=== PATIENT | male | born 1960 | race Two or more races ===

== ENCOUNTER 2018-05-08 11:05 | Emergency (ER) | payer OTHER ==
[~2018-05-08] VITALS: Ht 167.6 cm; Wt 72.5 kg
[~2018-05-08 11:05] MED LIST: AMLO1TAB2
[2018-05-08 12:06] LABS: BASOPHILS # (AUTO) 0.04 x10^3/uL (0-0.1); BASOPHILS % (AUTO) 1 % (0-1); EOSINOPHILS % (AUTO) 2 % (1-7); LYMPHOCYTES # (AUTO) 1.71 x10^3/uL (1-3.4); LYMPHOCYTES % (AUTO) 18 % (22-44); MD NO; MEAN CORPUSCULAR HEMOGLOBIN 29.8 pg (27.5-34.5); MEAN CORPUSCULAR HGB CONC 33.8 g/dL (33.2-36.2); MEAN CORPUSCULAR VOLUME 88.3 fL (81-97); MEAN PLATELET VOLUME 8.4 fL (7.4-10.4); MONOCYTES # (AUTO) 0.61 x10^3/uL (0.2-0.8); MONOCYTES % (AUTO) 7 % (2-9); NEUTROPHILS # (AUTO) 6.82 x10^3/uL (1.8-6.8); NEUTROPHILS % (AUTO) 73 % (42-75); PLATELET COUNT 288 x10^3/uL (130-400); RED BLOOD COUNT 5.29 x10^6/uL (4.38-5.82); RED CELL DISTRIBUTION WIDTH 14.3 % (9.4-14.8)
[2018-05-08 12:17] LABS: INTERNATIONAL NORMALIZED RATIO 0.99 (0.93-1.1); PROTHROMBIN TIME 10.2 Seconds (9.6-11.5)
[2018-05-08 12:18] LABS: ALBUMIN 4.3 g/dL (3.4-5.0); ANION GAP 6 mmol/L (5-15); CALCIUM 9.5 mg/dL (8.5-10.1); CHLORIDE 108 mmol/L (98-107)
[2018-05-08 12:23] LABS: CREATININE 0.95 mg/dL (0.7-1.3); TROPONIN I < 0.015 ng/mL (0.000-0.045)
[2018-05-08 12:49] VITALS: BP 135/79
== END 2018-05-08 12:59 | disposition home or self-care (01) ==
LOC: ED 12:50
DX: R20.2 Paresthesia of skin (principal); I10 Essential (primary) hypertension; I25.2 Old myocardial infarction; R07.89 Other chest pain
CPT/HCPCS: 36415; 80048; 82040; 84484; 85025; 85610; 85730; 93005; 99285